=== PATIENT | female | born 1990 | race Caucasian/White ===

== ENCOUNTER 2020-06-06 18:36 | Observation (INO) | payer MEDICAID ==
[~2020-06-06] VITALS: Ht 157.5 cm; Wt 94.3 kg
[2020-06-06] MEDS ORDERED: PNV1TABL76 PO (19:23)
[2020-06-06] MEDS ORDERED: CALCIUM (19:23)
[2020-06-06] MEDS ORDERED: FERR325T6 PO (19:23)
== END 2020-06-06 21:20 | disposition home or self-care (01) ==
LOC: ER 18:36 → L&D 19:20
PROVIDERS: ADMIT Obstetrics & Gynecology; ATTEND Obstetrics & Gynecology
DX: O98.513 Other viral diseases complicating pregnancy, third trimester (principal); U07.1 COVID-19; O42.92 Full-term premature rupture of membranes, unspecified as to length of time between rupture and onset of labor; Z3A.39 39 weeks gestation of pregnancy
CPT/HCPCS: 59025; 76815; 76818; 99281; G0378